=== PATIENT | female | born 1930 ===

== ENCOUNTER 2017-02-12 06:54 | Day surgery (SDC) | payer OTHER ==
[~2017-02-12 06:54] MED LIST: AMILORIDE HCL5 MG PO; METFORMIN HCL500 MG PO; NORVASC5 MG PO
[2017-02-12] MEDS ORDERED: ULTRACET PO (13:14)
== END 2017-02-12 16:45 | disposition home or self-care (01) ==
LOC: CIR.AMB 06:54
DX: C83.33 Diffuse large B-cell lymphoma, intra-abdominal lymph nodes (principal)
CPT/HCPCS: 36561; C1751